=== PATIENT | female | born 2005 | race Caucasian/White ===

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

== ENCOUNTER 2023-02-18 13:24 | Outpatient (CLI) | payer BC, OTHER | END 2023-02-18 13:25 | disposition home or self-care (01) | LOC: NM 13:24 | PROVIDERS: ATTEND Specialist | DX: K81.9 Cholecystitis, unspecified (principal) | CPT/HCPCS: 78227; A9537 ==